=== PATIENT | male | born 1985 | race Caucasian/White ===

== ENCOUNTER 2017-05-18 00:47 | Emergency (ER) | payer SELFPAY ==
[2017-05-18 00:52] VITALS: BP 152/95; PULSE 64; RESP 16; TEMP 36.6; O2SAT 99; BMI 22.8
--- NOTE | 2017-05-18 01:00 | HMH.EDDENT ---
ED Disposition Clinical Impression: Toothache, Dental caries Disposition: Home, Self-Care Condition on Discharge: Good Instructions: DI for Dental Pain - Critical Care Critical Care Time: No Attestation: On , the high probability of a clinically significant, sudden or life threatening deterioration of the following system(s) required my full and direct attention, intervention and personal management. The time I documented below is in addition to time spent performing reported procedures but includes the following listed in this critical care notation. Medical Decision Making - Medical Records Medical records reviewed: Yes: I reviewed the patient's medical records. Vital Signs: 05/18/17 00:52 Temperature 97.9 F Temperature Source Oral Pulse Rate [Right Brachial] 64 Respiratory Rate 16 Blood Pressure [Right Arm] 152/95 Blood Pressure Mean [Right Arm] 114 Blood Pressure Source [Right Arm] Automatic Cuff Blood Pressure Position [Right Arm] Sitting 02 Sat by Pulse Oximetry 99 Oxygen Delivery Method Room Air - David Inquiry Pt receiving controlled substance: No Dental HPI - General Chief complaint: Dental/Oral Stated complaint: Dental Pain Left Side of Mouth Time Seen by Provider: 05/18/17 01:01 Mode of Arrival: Ambulatory Source of Information: Patient, Medical Record Limitations: No Limitations Description of Symptoms (Recalled from ER Triage Doc. by RN): LEFT LOWER DENTAL PAIN, HAS DENTIST APPT TOMORROW - History of Present Illness HPI Narrative: pt with lt lower dental pain with pending dental appt MD Complaint: tooth pain Onset (ago): day(s) Duration: intermittent Severity: moderate Context: history of dental caries, poor dental care - Related Data Home Medications Medication Instructions Recorded Confirmed No Known Home Medications [No 05/18/17 05/18/17 Known Home Medications] Allergies Allergy/AdvReac Type Severity Reaction Status Date / Time PREDNISONE Allergy Unknown Uncoded 03/14/17 15:28 [facility] History I have reviewed the patient's past medical history: Yes - Social History Smoking Status: Current every day smoker Tobacco Type: cigarettes Alcohol Intake: never - Psychiatric History Expresses thoughts of harming self/others: None Suicide Plan Description: No Plan ROS Obtained: Yes All systems reviewed & no additional complaints - Constitutional Constitutional: Denies fever(s) - Eyes Eyes: Denies change in vision - ENT Ears, Nose, Mouth, and Throat: Reports dental pain - Cardiovascular Cardiovascular: Denies chest pain at rest - Respiratory Respiratory: No cough - Gastrointestinal Gastrointestingal: Denies: abdominal pain - Musculoskeletal Musculoskeletal: Denies joint pain - Integumentary/Breasts Skin/Breast: Denies rash - Neurologic Neurologic: Denies frequent falls Physical Exam - General General appearance: in no apparent distress - Head Head exam: normocephalic - Eye Eye exam: Present: PERRL, EOMI - Expanded ENT Exam Teeth exam: Present: dental caries, gingival swelling - Neck Neck exam: Present: trachea midline - Respiratory Respiratory exam: Absent: respiratory distress - Cardiovascular Cardiovascular exam: Present: regular rate - Neurological Exam Neurological exam: Present: alert, oriented X3, CN II-XII intact - Skin Skin exam: Absent: rash
--- NOTE | 2017-05-18 01:04 | ED_ITS ---
ED Disposition Clinical Impression: Toothache, Dental caries Disposition: Home, Self-Care Condition on Discharge: Good Instructions: DI for Dental Pain - Critical Care Critical Care Time: No Attestation: On , the high probability of a clinically significant, sudden or life threatening deterioration of the following system(s) required my full and direct attention, intervention and personal management. The time I documented below is in addition to time spent performing reported procedures but includes the following listed in this critical care notation. Medical Decision Making - Medical Records Medical records reviewed: Yes: I reviewed the patient's medical records. Vital Signs: 05/18/17 00:52 Temperature 97.9 F Temperature Source Oral Pulse Rate [Right Brachial] 64 Respiratory Rate 16 Blood Pressure [Right Arm] 152/95 Blood Pressure Mean [Right Arm] 114 Blood Pressure Source [Right Arm] Automatic Cuff Blood Pressure Position [Right Arm] Sitting 02 Sat by Pulse Oximetry 99 Oxygen Delivery Method Room Air - David Inquiry Pt receiving controlled substance: No Dental HPI - General Chief complaint: Dental/Oral Stated complaint: Dental Pain Left Side of Mouth Time Seen by Provider: 05/18/17 01:01 Mode of Arrival: Ambulatory Source of Information: Patient, Medical Record Limitations: No Limitations Description of Symptoms (Recalled from ER Triage Doc. by RN): LEFT LOWER DENTAL PAIN, HAS DENTIST APPT TOMORROW - History of Present Illness HPI Narrative: pt with lt lower dental pain with pending dental appt MD Complaint: tooth pain Onset (ago): day(s) Duration: intermittent Severity: moderate Context: history of dental caries, poor dental care - Related Data Home Medications Medication Instructions Recorded Confirmed No Known Home Medications [No 05/18/17 05/18/17 Known Home Medications] Allergies Allergy/AdvReac Type Severity Reaction Status Date / Time PREDNISONE Allergy Unknown Uncoded 03/14/17 15:28 [facility] History I have reviewed the patient's past medical history: Yes - Social History Smoking Status: Current every day smoker Tobacco Type: cigarettes Alcohol Intake: never - Psychiatric History Expresses thoughts of harming self/others: None Suicide Plan Description: No Plan ROS Obtained: Yes All systems reviewed & no additional complaints - Constitutional Constitutional: Denies fever(s) - Eyes Eyes: Denies change in vision - ENT Ears, Nose, Mouth, and Throat: Reports dental pain - Cardiovascular Cardiovascular: Denies chest pain at rest - Respiratory Respiratory: No cough - Gastrointestinal Gastrointestingal: Denies: abdominal pain - Musculoskeletal Musculoskeletal: Denies joint pain - Integumentary/Breasts Skin/Breast: Denies rash - Neurologic Neurologic: Denies frequent falls Physical Exam - General General appearance: in no apparent distress - Head Head exam: normocephalic - Eye Eye exam: Present: PERRL, EOMI - Expanded ENT Exam Teeth exam: Present: dental caries, gingival swelling - Neck Neck exam: Present: trachea midline - Respiratory Respiratory exam: Absent: respiratory distress - Cardiovascular Cardiovascular
[2017-05-18 01:11] VITALS: BP 152/95; PULSE 64; RESP 16; TEMP 36.6; O2SAT 99
== END 2017-05-18 01:12 | disposition home or self-care (01) ==
PROVIDERS: Emergency Provider Emergency Medicine; Family Provider Family Medicine
DX: K02.9 Dental caries, unspecified (principal); F17.210 Nicotine dependence, cigarettes, uncomplicated
CPT/HCPCS: 99281